=== PATIENT | female | born 1990 | race African-American/Black ===

== ENCOUNTER 2017-01-06 18:08 | Emergency (ER) | payer OTHER ==
[2017-01-06] MEDS ORDERED: TORADOL IM ONE (18:49)
[2017-01-06] MEDS ORDERED: PERCOCET-10 PO ONE (18:49)
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
[2017-01-06 21:14] VITALS: BP 110/70
--- NOTE | 2017-01-07 07:36 | Diag Imaging Result Document ---
PROCEDURE NAME: CERVICAL SPINE COMPLETE - 01/06/2017 CERVICAL SPINE, 5 VIEWS: COMPARISON: 09/01/2013. FINDINGS: Alignment is anatomic. Vertebral body heights and intervertebral disc spaces are preserved. Neural foramina are patent. Soft tissues are clear. IMPRESSION: Negative exam.
--- NOTE | 2017-01-07 07:39 | Diag Imaging Result Document ---
PROCEDURE NAME: THORACIC SPINE - 01/06/2017 THORACIC SPINE, 3 VIEWS: COMPARISON: None. FINDINGS: There is some mild levocurvature of the upper thoracic spine and some mild rotary curvature of the lumbar spine. No fracture or subluxation. Vertebral body heights and intervertebral disk spaces are preserved. IMPRESSION: No acute disease.
== END 2017-01-06 21:20 | disposition home or self-care (01) ==
LOC: ED 18:08
DX: S29.012A Strain of muscle and tendon of back wall of thorax, initial encounter (principal); S16.1XXA Strain of muscle, fascia and tendon at neck level, initial encounter; M54.9 Dorsalgia, unspecified; M54.2 Cervicalgia; D57.1 Sickle-cell disease without crisis; M62.830 Muscle spasm of back; M47.9 Spondylosis, unspecified; V43.52XA Car driver injured in collision with other type car in traffic accident, initial encounter
CPT/HCPCS: 72050; 72072; J1885